=== PATIENT | female | born 1980 | race American Indian/Alaskan Native ===

== ENCOUNTER 2020-03-24 13:08 | Emergency (ER) | payer SELFPAY ==
[2020-03-24 13:33] VITALS: BP 131/76
--- NOTE | 2020-03-24 14:02 | Event Note ---
ED Screening Note Date of service: 03/24/20 Time: 13:59 ED Screening Note: 39-year-old -[place] female with past medical history of asthma presents to the emergency room for shortness of breath, cough, wheezing body aches days. She has not taken anything for her symptoms. She has no known drug allergies. Patient currently is not wheezing. She is tachycardic. This initial assessment/diagnostic orders/clinical plan/treatment(s) is/are subject to change based on patients health status, clinical progression and re- assessment by fellow clinical providers in the ED. Further treatment and workup at subsequent clinical providers discretion. Patient/guardian urged not to elope from the ED as their condition may be serious if not clinically assessed and managed. Initial orders include:
--- NOTE | 2020-03-24 22:09 | XRay Report ---
CHEST 2 VIEWS INDICATION / CLINICAL INFORMATION: MAIN. COMPARISON: 08/06/2010 FINDINGS: SUPPORT DEVICES: None. HEART / MEDIASTINUM: Stable. LUNGS / PLEURA: No significant pulmonary or pleural abnormality. No pneumothorax. ADDITIONAL FINDINGS: No significant additional findings. IMPRESSION: 1. No acute findings. No significant interval change. Signer Name: Dominick Ovalles MD Signed: 03/24/2020 10:05 PM Workstation Name: [id number]
--- NOTE | 2020-03-24 23:07 | Emergency Department Report ---
ED General Adult HPI - General Chief complaint: Headache Stated complaint: COUGH/WHEEZING/SORE MUSCLES Time Seen by Provider: 03/24/20 20:16 Source: patient Mode of arrival: Ambulatory Limitations: No Limitations - History of Present Illness Initial comments: 39-year-old morbidly obese Haitian female past medical history of asthma presents emerged department complaining of a couple day history of cough congestion with wheezing and had throbbing headache with diffuse muscle aches. She reports no fever no fever, chills, sweats reports hemoptysis hematemesis hematochezia. No nausea vomiting, no no hematuria no dysuria. She reports no flank pain. -: Gradual Radiation: non-radiation Quality: dull Consistency: constant Improves with: none Worsens with: none Associated Symptoms: cough (With mucus production duction routinely for the past few days. But reports no smoking or hemoptysis.), malaise Treatments Prior to Arrival: none - Related Data Previous Rx's Medication Instructions Recorded Last Taken Type Albuterol Mdi (or & Nicu Only) 1 puff IH Q4-6H PRN #1 inha 03/24/20 Unknown Rx [ProAir HFA Inhaler] Benzonatate [Tessalon Perles] 100 mg PO Q8HR #20 capsule 03/24/20 Unknown Rx predniSONE [Deltasone] 20 mg PO QDAY #5 tab 03/24/20 Unknown Rx Allergies Allergy/AdvReac Type Severity Reaction Status Date / Time No Known Allergies Allergy Unverified 03/24/20 13:28 ED Review of Systems ROS: Stated complaint: COUGH/WHEEZING/SORE MUSCLES Other details as noted in HPI Comment: All other systems reviewed and negative ED Past Medical Hx - Past Medical History Previous Medical History?: No - Surgical History Additional Surgical History: tubal ligation - Social History Smoking Status: Never Smoker - Medications Home Medications: Home Medications Medication Instructions Recorded Confirmed Last Taken Type Albuterol Mdi (or & Nicu Only) 1 puff IH Q4-6H PRN #1 inha 03/24/20 Unknown Rx [ProAir HFA Inhaler] Benzonatate [Tessalon Perles] 100 mg PO Q8HR #20 capsule 03/24/20 Unknown Rx predniSONE [Deltasone] 20 mg PO QDAY #5 tab 03/24/20 Unknown Rx ED Physical Exam - General Limitations: No Limitations General appearance: alert, in no apparent distress - Head Head exam: Present: atraumatic, normocephalic - Eye Eye exam: Present: normal appearance, PERRL, EOMI Pupils: Present: normal accommodation - ENT ENT exam: Present: mucous membranes moist - Neck Neck exam: Present: normal inspection - Respiratory Respiratory exam: Present: normal lung sounds bilaterally. Absent: respiratory distress - Cardiovascular Cardiovascular Exam: Present: regular rate, normal rhythm. Absent: systolic murmur, diastolic murmur, rubs, gallop - GI/Abdominal GI/Abdominal exam: Present: soft, normal bowel sounds - Extremities Exam Extremities exam: Present: normal inspection, other (General pains in legs from palpation of the extremities torso region) - Back Exam Back exam: Present: normal inspection - Neurological Exam Neurological exam: Present: alert, oriented X3 - Psychiatric Psychiatric exam: Present: normal affect, normal mood - Skin Skin exam: Present: warm, dry, intact, normal color. Absent: rash ED Course Vital Signs 03/24/20 03/24/20 13:32 13:33 Temperature 99.2 F Pulse Rate 116 H Respiratory 18 19 Rate Blood Pressure 131/76 O2 Sat by Pulse 98 Oximetry ED Medical Decision Making - Radiology Data Radiology results: report reviewed Referring Physician:LUIS EDUARDO MAYENPatient Name:DANNA GARRETTTPatient ID:[id number] of :[id number]:FemaleAccession:[id number] Date:[id number] Status:Finalized Findings [address] [address] XRay Report Signed Patient: DANNA MAYORGA MR# : [id number] : 1980 Acct:[id number] Age/Sex: 39 / F ADM Date: 03/24/20 Loc: ED Attending Dr: Ordering Physician: BERTA MAYER Date of Service: 03/24/20 Procedure(s): XR chest routine 2V Accession Number(s): [id number] cc: BERTA MAYER Fluoro Time In Minutes: CHEST 2 VIEWS INDICATION / CLINICAL INFORMATION: MAIN. COMPARISON: 08/06/2010 FINDINGS: SUPPORT DEVICES: None. HEART / MEDIASTINUM: Stable. LUNGS / PLEURA: No significant pulmonary or pleural abnormality. No pneumothorax. ADDITIONAL FINDINGS: No significant additional findings. IMPRESSION: 1. No acute findings. No significant interval change. Signer Name: Dominick Arce MD Signed: 03/24/2020 10:05 PM Workstation Name: [id number] Transcribed By: Dictated By: DOMINICK ARCE Electronically Authenticated By: DOMINICK ARCE Signed Date/Time: 03/24/202204 DD/ 03 TD/TT: - Medical Decision Making This patient presents with acute cough, most consistent with cough/bronchitis. Differential diagnosis includes URI, bronchitis, pneumonia, asthma, hyper wedge of airway, COVID-19. Presentation not consistent with acute bacterial pneumonia, influenza, asthma, transient airway hyperresponsiveness. Presentation not consistent with chronic causes of cough (including GERD, asthma, postnasal discharge, medication side effect, CHF, lung cancer or mass). patient presents with symptoms suspicious for likely viral upper respiratory t ract infection. Differential includes bacterial pneumonia, sinuallergic rhinitis,. Do not suspect underlying Cardiopulmonary process. I considered but think unlikely dangerous cause of this patient symptoms to include acute coronary syndrome, CHF or COPD exacerbations, pneumonia, pneumothorax. Patient is nontoxic appearing and not in need of emergent medical intervention. P chest x-ray was clear showed no acute processes Plan: Reassurance, reassessment, aoxn-peh-auabctt medications, discharge with PCP follow-up Critical care attestation.: If time is entered above; I have spent that time in minutes in the direct care of this critically ill patient, excluding procedure time. ED Disposition Clinical Impression: Cough, Bronchitis Disposition: - TO HOME OR SELFCARE Is pt being admited?: No Does the pt Need Aspirin: No Condition: Stable Instructions: Chronic Bronchitis (ED), How to Use a Dry Powder Inhaler, Cool Mist Vaporizer, Upper Respiratory Infection, Adult, [id number], Cough, Adult, [id number] Referrals: [facility] [Primary Care Provider] - 3-5 Days [facility] [Provider Group] - 3-5 Days
== END 2020-03-24 23:22 | disposition home or self-care (01) ==
LOC: ED 13:08
DX: J40 Bronchitis, not specified as acute or chronic (principal); Z98.51 Tubal ligation status; Z79.899 Other long term (current) drug therapy
CPT/HCPCS: 71046; 99283

== ENCOUNTER 2020-09-29 10:56 | Day surgery (SDC) | payer OTHER ==
[2020-09-28 10:42] LABS: Basophils # (Auto) 0.1 K/mm3 (0.0-0.1); Basophils % (Auto) 1.2 % (0.0-1.8); Eosinophils # (Auto) 0.1 K/mm3 (0.0-0.4); Eosinophils % (Auto) 2.5 % (0.0-4.3); Lymphocytes # (Auto) 1.5 K/mm3 (1.2-5.4); Lymphocytes % (Auto) 28.6 % (13.4-35.0); Mean Corpuscular HGB Conc 29 % (30-34); Monocytes # (Auto) 0.4 K/mm3 (0.0-0.8); Monocytes % (Auto) 8.1 % (0.0-7.3); Platelet Count 335 K/mm3 (140-440); Red Blood Count 4.18 M/mm3 (3.65-5.03)
[2020-09-28 10:55] LABS: Blood Urea Nitrogen 6 mg/dL (7-17); Calcium 6.4 mg/dL (8.4-10.2); Hemolysis Index 0
[2020-09-28 11:02] LABS: Hematocrit 27.4 % (30.3-42.9); Mean Corpuscular Volume 66 fl (79-97); Red Cell Distribution Width 21.2 % (13.2-15.2)
[2020-09-28 11:12] LABS: BUN/Creatinine Ratio 9
--- NOTE | 2020-09-28 13:40 | Anesthesia Consultation ---
Anesthesia Consult and Med Hx Date of service: 09/29/20 - Airway Anesthetic Teeth Evaluation: Chipped ROM Head & Neck: Adequate Mental/Hyoid Distance: Adequate Mallampati Class: Class III Intubation Access Assessment: Possibly Difficult - Pre-Operative Health Status ASA Pre-Surgery Classification: ASA3 Proposed Anesthetic Plan: General Nerve Block: TAP - Pulmonary Hx Asthma: Yes (Last used inhaler a couple of weeks ago) SOB: Yes Hx Sleep Apnea: No (Denies) - Cardiovascular System Hx Hypertension: No (Pt reports normal ECG three months ago) - Central Nervous System Hx Psychiatric Problems: No - Endocrine Hx Renal Disease: No Hx Liver Disease: No Hx Non-Insulin Dependent Diabetes: No Hx Thyroid Disease: No - Hematic Hx Anemia: Yes (8.0/27.4) Hx Sickle Cell Disease: No - Other Systems Hx Cancer: No Hx Obesity: Yes (Morbid; BMI-45)
--- NOTE | 2020-09-29 07:31 | Short Stay Summary ---
Short Stay Documentation Date of service: 09/29/20 Narrative H&P: 40-year-old -0-0-4 with a history of dysfunctional uterine bleeding and dysmenorrhea. The patient reports heavy vaginal bleeding during her menses resulting in iron deficiency anemia. Pelvic ultrasound demonstrated a slightly enlarged uterus of 12.5 cm without any distinctive evidence of uterine masses. The patient is elected to proceed with this definitive surgical management. - History Principal diagnosis: Dysfunctional uterine bleeding and dysmenorrhea Past Medical History: hypertension, other (Morbid obesity; asthma) Past Surgical History: Other (Tubal ligation) Social history: single - Allergies and Medications Current Medications: Allergies aspirin Allergy (Verified 09/24/20 17:25) Unknown Home Medications Medication Instructions Recorded Confirmed Last Taken Type Albuterol Mdi (or & Nicu Only) 1 puff IH Q4-6H PRN 09/24/20 09/24/20 Unknown History [ProAir HFA Inhaler] Ferrous Sulfate [Feosol] 325 mg PO QDAY 09/24/20 09/24/20 Unknown History Ibuprofen [Motrin] 800 mg PO Q8HR PRN 09/24/20 09/24/20 Unknown History Active Medications Acetaminophen (Acetaminophen 500 Mg Tab) 1,000 mg PO ONCE NR Stop: 09/29/20 23:59 Celecoxib (Celecoxib 200 Mg Cap) 400 mg PO PREOP NR Stop: 09/29/20 23:59 Fentanyl (Fentanyl 100 Mcg/2 Ml Inj) 100 mcg IV ONCE NR Stop: 09/29/20 23:59 Lactated Ringer's (Lactated Ringers) 1,000 mls @ 125 mls/hr IV DIRECT JOSE Magnesium Oxide (Magnesium Oxide 400 Mg Tab) 400 mg PO ONCE NR Stop: 09/29/20 23:59 Midazolam HCl (Midazolam 2 Mg/2 Ml Inj) 2 mg IV PREOP NR Stop: 09/29/20 23:59 - Physical exam General appearance: no acute distress Integumentary: no rash HEENT: Atraumatic Lungs: Clear to auscultation Breasts: deferred Heart: Regular rate Gastrointestinal: normal Female Genitourinary: deferred Rectal Exam: deferred Extremities: no ischemia - Brief post op/procedure progress note Date of procedure: 09/29/20 Pre-op diagnosis: Dysfunctional uterine bleeding and dysmenorrhea Post-op diagnosis: same Procedure: Robotic hysterectomy and bilateral salpingectomy Anesthesia: CAMI Surgeon: BLANCHE ROBERTS Estimated blood loss: other (50 mL) Pathology: list (Uterus, cervix, bilateral tubes) Specimen disposition: to lab Condition: stable - Hospital course Hospital course: The patient was admitted the day of surgery underwent a robotic hysterectomy and bilateral salpingectomy. Please see operative note for details of surgery. Her postoperative course was uneventful. - Disposition Condition at discharge: Good Disposition: DC-01 TO HOME OR SELFCARE Short Stay Discharge Plan Activity: other (Pelvic rest for 6 weeks) Diet: regular Additional Instructions: Schedule follow-up with Dr. Roberts in 4 weeks
[~2020-09-29 10:56] MED LIST: ACETAMINOPHEN 500 MG TAB PO NR; CELECOXIB 200 MG CAP PO NR; LACTATED RINGERS 1,000 ML IV SCH; MAGNESIUM OXIDE 400 MG TAB PO NR; MIDAZOLAM 2 MG/2 ML INJ IV NR; SODIUM CHLORIDE 0.9% 500 ML 500 ML IV NR; fentaNYL 100 MCG/2 ML INJ IV NR
[2020-09-29] MEDS ORDERED: GLYCOPYRROLATE 0.4 MG/2 ML INJ ONE (11:04)
[2020-09-29] MEDS ORDERED: ROCURONIUM 50 MG/5 ML INJ IV ONE (11:04)
[2020-09-29] MEDS ORDERED: LIDOCAINE MPF (2%) 20 MG/1 ML VIAL 5 ML ONE (11:04)
[2020-09-29] MEDS ORDERED: NEOSTIGMINE 10MG/10 ML INJ MDV ONE (11:04)
[2020-09-29] MEDS ORDERED: HYDROmorphone 1 MG/1 ML INJ ONE ×2 (11:05→15:53)
[2020-09-29] MEDS ORDERED: propofoL 200 MG/20 ML VIAL IV ONE (11:05)
[2020-09-29] MEDS ORDERED: fentaNYL 100 MCG/2 ML INJ ONE (11:05)
[2020-09-29] MEDS ORDERED: NEOMY 40 MG/POLYMYXIN B 200,000 UNITS/ML (GU) AMPULE IR ONE ×2 (11:07→13:49)
--- NOTE | 2020-09-29 11:30 | Anesthesia Day of Surgery ---
Anesthesia Day of Surgery - Day of Surgery Patient Examined: Yes Patient H&P Reviewed: Yes Patient is NPO: Yes
[2020-09-29] MEDS ORDERED: dexAMETHasone 4 MG/ML VIAL ONE (11:57)
[2020-09-29] MEDS ORDERED: BUPIVACAINE-EPINEPHRINE/PF 0.25%-1:200,000 (30 ML) VIAL INFILTRATI ONE (11:57)
[2020-09-29] MEDS ORDERED: SODIUM CHLORIDE 0.9% IRRIG SOLN 2000 ML IR ONE (13:50)
[2020-09-29] MEDS ORDERED: SODIUM CHLORIDE 0.9% IRR 1,500 ML BOTTLE IR ONE (13:50)
--- NOTE | 2020-09-29 14:31 | Operative Report ---
Operative Report Operative Report: Date of surgery: September 29, 2020 Preoperative diagnoses: Dysfunctional uterine bleeding; dysmenorrhea; morbid o besity Postoperative diagnoses: Same as above Procedure: Robotic hysterectomy; bilateral salpingectomy Surgeon: Cher Tellez M.D. Conductor And Engineer: Yamel Cam Anesthesia: Gen. endotracheal anesthesia Estimated blood loss: 50 mL Pathology: Uterus, cervix, bilateral tubes Indication: 40-year-old -0-0-4 with a history of dysfunctional uterine bleeding and dysmenorrhea. The patient has had significant vaginal bleeding during her menses that has caused a moderate severe iron deficiency anemia. The patient was transfused 2 units packed red blood cells preoperatively. Procedure: The patient was taken to the operating room and given general endotracheal anesthesia without complication after a time out was performed confirming the surgery and identity of the patient. She was prepped and draped in a normal sterile fashion. A bivalve speculum was placed in the patient's vagina and a single-tooth tenaculum placed on the anterior lip of the cervix. The uterus was sounded with the uterine sound. A stay suture with 0-vicryl was placed at 12 o'clock on the anterior cervix. A [employer] uterine manipulator was placed in the bivalve speculum was then removed. A warm laparotomy sponge was placed in the vagina. Attention was then turned to the patient's abdomen where a 12millimeter supra umbilical skin incision was then made. A Veress needle was placed and peritoneal entry was verified water-filled syringe. Insufflation of the peritoneal cavity was performed with CO2 gas. The 12 mm trocar was then placed under direct visualization. An additional 8 mm robotic trocar was placed on the patient's left and right lateral side just opposite of the supraumbilical trocar. An additional 5 mm right lateral trocar was then placed as the accessory port. The supraumbilical 12 mm trocar site was closed with the Naren Velasquez device and 0-vicryl suture. The patient was then placed in steep Trendelenburg. The da Lay robot was then engaged. A fenestrated forcep was placed in arm 2 and a vessel sealer was placed in arm 1. General survey of the abdomen and pelvis revealed a enlarged uterus with normal tubes and ovaries bilaterally. The surgeon then transferred to the surgical console. The mesosalpinx was then isolated on the right. The vessel sealer was used to coagulate the mesosalpinx which was then transected. The tube was transected from the ovary. The tubo-ovarian ligament was then coagulated and transected. The round ligament was then coagulated and transected also. The vesicouterine peritoneum was then entered from the patient's right side. The uterine vessels were then coagulated with the vessel sealer. The vessels were then transected . Attention was then turned to the patient's left side where the tubo-ovarian ligament and mesosalpinx were again isolated coagulated and transected. The vesical peritoneum was then entered from the left and joined in the midline. Peritoneum was reflected off of the lower uterine segment. Uterine vessels were then coagulated and then transected. The blood supply to the uterus was adequately contained, a posterior colpotomy was made. The V care ring was visualized. Posterior colpotomy was created with the monopolar scissors. The incision was continued circumferentially until anterior colpotomy was made. The cervix and uterus were amputated from the vaginal cuff. The uterus was bivalved in order to facilitate delivery through the vagina. The uterus was then removed along with the tubes bilaterally through the vagina and a warm laparotomy sponge was placed and maintain the pneumoperitoneum. The vaginal cuff was then closed in a running fashion with V lock suture. Irrigation of the pelvis was performed. Hemoblast was applied to the incision. The [employer] robot was u ndocked. The trocars were removed and the insuffliation was released. The skin was then reapproximated with 4-0 Monocryl. The tissue was sent to pathology which included the cervix, bilateral tubes and uterus. The patient was then successfully extubated. She was then taken to the recovery room in stable condition. All sponge laps and needle counts were correct x2.
[2020-09-29] MEDS: HYDROmorphone 1 MG/1 ML INJ IV PRN ×2 (15:55→16:13)
--- NOTE | 2020-09-29 16:37 | Post Anesthesia Evaluation ---
- Post Anesthesia Evaluation Patient Participated: Yes Airway Patent: Yes Stable Respiratory Function: Yes Nausea/Vomiting: No Temp > 96.8F: Yes Pain Manageable: Yes Adequeate Hydration: Yes Anesthesia Complications: No Block Receding Appropriately: Yes Patient on Ventilator: No
[2020-09-29 17:56] VITALS: BP 138/80
== END 2020-09-29 17:35 | disposition home or self-care (01) ==
LOC: OR 10:56
PROVIDERS: ATTEND Obstetrics & Gynecology
DX: N93.8 Other specified abnormal uterine and vaginal bleeding (principal); E66.01 Morbid (severe) obesity due to excess calories; Z20.822 Contact with and (suspected) exposure to COVID-19; N94.6 Dysmenorrhea, unspecified; N80.0 Endometriosis of uterus; N88.8 Other specified noninflammatory disorders of cervix uteri; D64.9 Anemia, unspecified; J45.909 Unspecified asthma, uncomplicated; N72 Inflammatory disease of cervix uteri; Z79.899 Other long term (current) drug therapy; Z98.51 Tubal ligation status; Z98.890 Other specified postprocedural states; Z68.42 Body mass index [BMI] 45.0-49.9, adult
CPT/HCPCS: 36415; 58554; 64488; 80048; 84703; 85025; 86850; 86900; 86901; 86920; 88307; A4217; J0690; J1100; J1170; J2250; J2704; J2710; J3010; J7040; J7120; P9016; S2900; U0003; 64450